=== PATIENT | female | born 1960 | race Caucasian/White ===

== ENCOUNTER 2020-03-10 10:31 | Emergency (ER) | payer OTHER, SELFPAY ==
[2020-03-10 10:47] VITALS: BP 181/96; PULSE 99; RESP 20; TEMP 37.2; O2SAT 97
--- NOTE | 2020-03-10 12:22 | ED.ANIMALBIT ---
HPI - Animal Bite General Chief Complaint: Animal Bite Stated Complaint: animal bite Source: patient Mode of arrival: ambulatory Limitations: no limitations History of Present Illness HPI narrative: Patient is a 59-year-old female who presents with multiple dog bites this a.m. She reports her dog was sick and she was going to take to emergency director media, when dog was in pain and bit patient multiple times. Patient reports dog was euthanized. She reports dog was up-to-date on shots. She denies other injuries except for bites to bilateral arms. Related Data Home Medications Medication Instructions Recorded Confirmed hydroxychloroquine 200 mg BID 03/10/20 03/10/20 levothyroxine 125 mcg PO DAILY 03/10/20 03/10/20 lisinopril 20 mg DAILY 03/10/20 03/10/20 methotrexate sodium 2.5 mg DAILY 03/10/20 03/10/20 Allergies Allergy/AdvReac Type Severity Reaction Status Date / Time flaxseed Allergy Hives Verified 03/10/20 10:55 Review of Systems Review of Systems: Narrative: CONSTITUTIONAL: Denies fever, chills, or sweats. EYES: Denies visual changes, redness, or discharge. ENT: Denies rhinorrhea, congestion, sore throat, or otalgia. CARDIOVASCULAR: Denies chest pain, palpitations, or edema. RESPIRATORY: Denies cough or dyspnea. GASTROINTESTINAL: Denies abdominal pain, nausea, vomiting, or diarrhea. GENITOURINARY: Denies dysuria or hematuria. SKIN: Reports dog bites to bilateral arms MUSCULOSKELETAL: Denies back pain, joint pain, or myalgia. NEUROLOGIC: Denies headache, numbness, dizziness, or weakness. PSYCHIATRIC: Denies anxiety or depression. [facility] Past Medical History Medical History (Updated 03/10/20 @ 13:38 by COLLEEN Monroy) Autoimmune disorder HTN (hypertension) Surgical History Surgical History (Updated 03/10/20 @ 13:39 by COLLEEN Monroy) No significant past surgical history Family History Family History (Updated 03/10/20 @ 13:39 by COLLEEN Monroy) Other No significant family history Social History Social History (Updated 03/10/20 @ 13:39 by COLLEEN Monroy) Smoking status: Never smoker Alcohol intake: never Substance use: never Living arrangements: with family Gender identity (if verbalized by the patient): Female Exam Narrative: Exam Narrative: GENERAL: Well-appearing, well-nourished, and in no acute distress. HEAD: Normocephalic, atraumatic. EYES: No redness or drainage. ENT: Mucous membranes pink and moist. CHEST: No respiratory distress. HEART: Regular rate and rhythm. EXTREMITIES: Normal range of motion. SKIN: Laceration #1: 0.5 cm linear laceration to left ring finger Laceration #2: 2.5 cm crescent laceration to dorsal hand Laceration #3: 3 cm linear laceration to palm of left hand Laceration #4: 3 cm irregular laceration to right forearm NEURO: No focal deficits. Alert and oriented x3. Gait steady. PSYCH: Normal affect. No signs of depression or anxiety. Course Vital Signs Vital signs: Vital Signs Temperature 37.2 C 03/10/20 10:47 Pulse Rate 99 03/10/20 10:47 Respiratory Rate 20 03/10/20 10:47 Blood Pressure 181/96 H 03/10/20 10:47 Pulse Oximetry 97 03/10/20 10:47 Temperature 37.2 C 03/10/20 10:47 Pulse Rate 99 03/10/20 10:47 Respiratory Rate 20 03/10/20 10:47 Blood Pressure 181/96 H 03/10/20 10:47 Pulse Oximetry 97 03/10/20 10:47 Procedures Laceration Laceration 1: Date: 03/10/20 Site: other (ring finger) Side (If applicable): left Size (cm): 0.5 Description: linear Depth: simple, single layer Local Anesthetic: lidocaine 1% Amount of anesthesia used (mL): 0.5 Pre-repair: irrigated ====== Skin Level ====== Skin layer closed with: nylon Size (cm): 5-0 Number of sutures: 2 ====== Subcutaneous Layer ====== ====== Muscle Layer ====== ====== Tendon Layer ====== Dressing: neospo
== END 2020-03-10 12:29 | disposition home or self-care (01) ==
PROVIDERS: Emergency Provider Nurse Practitioner; PCP Physician Assistant
DX: S61.215A Laceration without foreign body of left ring finger without damage to nail, initial encounter (principal); S61.412A Laceration without foreign body of left hand, initial encounter; S51.811A Laceration without foreign body of right forearm, initial encounter; W54.0XXA Bitten by dog, initial encounter; D89.9 Disorder involving the immune mechanism, unspecified; I10 Essential (primary) hypertension
CPT/HCPCS: 12032; 12002; 99213; G0463

== ENCOUNTER 2020-03-19 11:19 | Emergency (ER) | payer OTHER, SELFPAY ==
--- NOTE | 2020-03-19 11:39 | ED.GENADULT ---
HPI - General Adult General Chief complaint: Wound/Laceration Stated complaint: remove stitches Time Seen by Provider: 03/19/20 11:39 Source: patient and RN notes reviewed Mode of arrival: ambulatory Limitations: no limitations History of Present Illness HPI narrative: 59-year-old female presents to have sutures removed from right forearm and throughout left hand. Juliana reports she is here for healing wounds sutures removal. No concern for infection of wound. No tenderness, erythema, or swelling to areas. No fever or chills. No drainage. No streaking. Juliana has been following recent discharge instructions. Remains active. The patient reports she have not been diagnosed with COVID-19. The patient reports she is not waiting for the results of a COVID-19 lab test. The patient reports she do not have chills, weakness, or fatigue. The patient reports she do not have a new or worsening cough or shortness of breath. Denies chest pain. The patient reports she do not have any rhinorrhea, congestion, sore throat, loss of taste, nausea, vomiting, abdominal pain, and diarrhea. Tolerating po intake well. Denies recent traveling. Denies concerns for COVID-19 or exposures been home with limited outdoor exposure except for essential household needs, work, and return home. At this time, patient is not suspected of having COVID-19. Some parts of this dictation were generated by voice recognition software and may contain typographical and/or grammatical inaccuracies. Related Data Home Medications Medication Instructions Recorded Confirmed hydroxychloroquine 200 mg BID 03/10/20 03/19/20 levothyroxine 125 mcg PO DAILY 03/10/20 03/19/20 lisinopril 20 mg DAILY 03/10/20 03/19/20 methotrexate sodium 2.5 mg DAILY 03/10/20 03/19/20 Allergies Allergy/AdvReac Type Severity Reaction Status Date / Time flaxseed Allergy Hives Verified 03/10/20 10:55 Review of Systems Review of Systems: Narrative: CONSTITUTIONAL: Denies fever, chills, sweats. EYES: Denies visual changes, redness, discharge. ENT: Denies rhinorrhea, congestion, sore throat, otalgia. CARDIOVASCULAR: Denies chest pain, palpitations, edema. RESPIRATORY: Denies dyspnea, wheezing, cough. GASTROINTESTINAL: Denies abdominal pain, nausea, vomiting, diarrhea. SKIN: Denies rash or itching. Complains of needing sutures removed from right forearm and throughout left hand. MUSCULOSKELETAL: Denies acute back pain, joint pain, or myalgia. NEUROLOGIC: Denies numbness or focal weakness. PSYCHIATRIC: Denies anxiety or depression. All other systems reviewed are negative, except as documented in HPI and below. [facility] Past Medical History Medical History (Updated 03/19/20 @ 12:07 by COLLEEN Sauceda) Autoimmune disorder HTN (hypertension) Ovarian cyst Surgical History Surgical History (Updated 03/19/20 @ 12:07 by CLOLEEN Sauceda) History of ovarian cystectomy at the age of 19 Family History Family History (Updated 03/19/20 @ 12:08 by COLLEEN Sauceda) Father Acute myocardial infarction Mother Pancreatic cancer Other No significant family history Social History Social History (Updated 03/19/20 @ 12:10 by COLLEEN Sauceda) Smoking status: Former smoker Tobacco type: cigarettes Second hand tobacco smoke exposure: No Smoking end date: 03/07/92 Additional smoking assessment comments: Juliana reports smoking when drinking in college Alcohol intake: never Substance use: never Substance use type: does not use Living arrangements: with family Additional living arrangements comments: spouse Occupation/Education: occupation Gender identity (if verbalized by the patient): Female Sexual Orientation (if Verbalized by the Patient): Straight or Heterosexual Comments At time of signature, agree with nurse past medical, surgical, social, and family history. There is no relevant family history pertin
[2020-03-19 11:40] VITALS: BP 136/88; PULSE 88; RESP 20; TEMP 36.8; O2SAT 99
== END 2020-03-19 12:08 | disposition home or self-care (01) ==
PROVIDERS: Emergency Provider Nurse Practitioner Family; PCP Physician Assistant
DX: S51.811D Laceration without foreign body of right forearm, subsequent encounter (principal); S61.215D Laceration without foreign body of left ring finger without damage to nail, subsequent encounter; S61.412D Laceration without foreign body of left hand, subsequent encounter; W19.XXXD Unspecified fall, subsequent encounter; Z87.891 Personal history of nicotine dependence; I10 Essential (primary) hypertension; D89.89 Other specified disorders involving the immune mechanism, not elsewhere classified
CPT/HCPCS: 99211; G0463